=== PATIENT | male | born 1945 | race Caucasian/White ===

== ENCOUNTER → 2016-10-03 | Outpatient (CLI) | payer OTHER ==
[~2016-10-03] MED LIST: GABA-112 PO; LPT40 PO; MELO15TA4 PO; NRN100 PO
[2016-10-03 17:36] LABS: BLOOD UREA NITROGEN 18 mg/dl (7-18); CALCIUM 9.3 mg/dl (8.5-10.1); CARBON DIOXIDE 29 mmol/L (21-32); CHLORIDE 105 mmol/L (98-107); CREATININE 0.97 mg/dl (0.60-1.40); GLUCOSE 99 mg/dl (70-99); POTASSIUM 3.8 mmol/L (3.5-5.1); SODIUM 142 mmol/L (136-145)
== END | disposition home or self-care (01) ==
LOC: C.LABPVFM 15:26
PROVIDERS: ATTEND Nurse Practitioner
DX: Z11.59 Encounter for screening for other viral diseases (principal); E55.9 Vitamin D deficiency, unspecified; B02.29 Other postherpetic nervous system involvement

== ENCOUNTER 2016-11-04 14:17 | Inpatient (IN) | payer OTHER ==
[~2016-11-04] VITALS: Ht 170.2 cm; Wt 69.4 kg
[2016-11-04] VITALS: BP 175/89; PULSE 60; TEMP 36.9; O2SAT 94; BMI 23.9
[2016-11-04] MEDS ORDERED: SODIUM CHLORIDE 0.9% 1000ML 1,000 ML IV SCH ×2 (16:04→17:46)
[2016-11-04 16:29] LABS: BASO % 0.6 %; BASO ABS # 0.03 K/uL (0-0.2); COMPLETE YES; HEMATOCRIT 41.1 % (42-52); LYMPH % 31.2 %; LYMPH ABS # 1.69 K/uL (1.2-3.4); MEAN CELL VOLUME 84.4 fL (80-100); MEAN CORPUSCULAR HEMOGLOBIN 29.4 pg (25-34); MEAN CORPUSCULAR HGB CONC 34.8 g/dl (32-36); MEAN PLATELET VOLUME 9.8 fL (7.4-10.4); NEUT % 58.2 %; PLATELET COUNT 150 K/uL (130-400); RED BLOOD COUNT 4.87 M/uL (4.7-6.1); WHITE BLOOD COUNT 5.41 K/uL (4.8-10.8)
--- NOTE | 2016-11-04 16:31 | DIAGNOSTIC IMAGING REPORT ---
CHEST ONE VIEW PORTABLE CLINICAL HISTORY: Stroke COMPARISON STUDY: 03/11/2013 FINDINGS: The cardiac and mediastinal contours are normal. There is no evidence of focal pulmonary consolidation. There is no evidence of failure. No pleural effusions are visualized.[ IMPRESSION: No active disease in the chest. Electronically signed by: Seven Epstein M.D. 11/04/2016 4:30 PM Dictated Date/Time: 11/04/2016 4:29 PM
[2016-11-04 16:40] LABS: PROTHROMBIN TIME (PATIENT) 10.8 SECONDS (9.0-12.0)
--- NOTE | 2016-11-04 16:44 | DIAGNOSTIC IMAGING REPORT ---
CT HEAD WITHOUT CONTRAST (CT) CLINICAL HISTORY: Stroke COMPARISON STUDY: No previous studies for comparison. TECHNIQUE: Axial CT of the brain is performed from the vertex to the skull base. IV contrast was not administered for this examination. CT DOSE: 614.27 mGy.cm FINDINGS: No intra or extra-axial mass lesions are visualized. There is no CT evidence of acute cortical infarction. There is no evidence of midline shift. There is no acute hemorrhage. No calvarial fractures are visualized. There is a subtle hypodensity in the region of the posterior limb of the left internal capsule. A tiny lacunar infarct cannot be excluded. There is no evidence of pathologic ventricular dilatation. There is no evidence of acute sinusitis IMPRESSION: 1. No evidence of intracranial mass 2. No evidence of acute hemorrhage 3. Equivocal tiny lacunar infarct in the region of the posterior limb of the left internal capsule Electronically signed by: Seven Epstein M.D. 11/04/2016 4:43 PM Dictated Date/Time: 11/04/2016 4:42 PM
[2016-11-04 16:52] LABS: BLOOD UREA NITROGEN 22 mg/dl (7-18); BUN/CREATININE RATIO 21.9 (10-20); CARBON DIOXIDE 30 mmol/L (21-32); CHLORIDE 106 mmol/L (98-107); GLUCOSE 111 mg/dl (70-99); SODIUM 142 mmol/L (136-145)
[2016-11-04 16:56] LABS: CKMB/CK RATIO 0.9 (0-3.0)
[2016-11-04 16:57] LABS: BENZODIAZEPINE, URINE NEG (NEG); COCAINE,URINE NEG (NEG); PHENCYCLIDINE, URINE NEG (NEG)
--- NOTE | 2016-11-04 17:55 | EMERGENCY ROOM VISIT NOTE ---
History Report prepared by Isabel: Shena Henry Under the Supervision of: Dr. Demario Obregon M.D. First contact with patient: 15:50 Chief Complaint: CONFUSION Stated Complaint: CONFUSION THIS MORNING Nursing Triage Summary: Pt reports this morning when he woke up he seemed confused. He drove to his doctor but was forgettign where to turn. Pt went home and called doctor and they told him to be seen here. Pt reports this happened around 0900. Pt drove self to ER and reports he is not confused at this time. Alert and oriented x4. Denies headache, dizziness, weakness. History of Present Illness The patient is a 71 year old male who presents to the Emergency Room with complaints of an episode of confusion this morning. The patient woke up this morning around 9AM after a bad night of sleep. The patient notes that he knew where he was when he woke up and was able to perform simple tasks. He had a doctor's appointment scheduled today. He notes that through the morning, he could not figure out how to get to the doctor's office. He has not been to the doctor for about 2 months so he thinks he may have forgotten how to get there. He continued to obsess about how to get to the office and was walking around the house through the morning trying to "shake it off." He was afraid he was going to get lost, so he called the doctor's office. He said that he noticed he was occasionally having trouble finding words and explaining himself. He does not have anyone to talk to at home but thinks that he may have had similar problems yesterday. After he was talking on the phone, he seemed to settle down. He was given directions but had trouble making sense of them, so he was referred to the ER. He typically has a good sense of direction. Currently, he is feeling "foggy." Denies slurred speech, unilateral weakness, or numbness, difficulty swallowing, difficulty walking, vision problems, headaches, fevers, recent illnesses, or other complaints. He is not treated for hypertension or diabetes. He does not have a history of a stroke. He reports rare alcohol use. Source of History: patient Onset: this morning around 9AM Position: other (global) Quality: other (confusion) Timing: other (episode) Associated Symptoms: No fevers, No headache, No numbness, No weakness Note: Other symptoms: trouble finding words and communicating thoughts Review of Systems See HPI for pertinent positives & negatives. A total of 10 systems reviewed and were otherwise negative. Past Medical & Surgical Medical Problems: (1) Lyme disease Family History No pertinent family history stated. Social History Smoking Status: Never Smoker Marital Status: single Housing Status: lives alone Occupation Status: retired Allergies Coded Allergies: No Known Allergies (Unverified , 11/04/16) Physical Exam Vital Signs Date Time Temp Pulse Resp B/P Pulse Ox O2 Delivery O2 Flow Rate FiO2 11/04/16 17:16 76 16 160/86 97 Room Air 11/04/16 16:23 65 18 169/79 99 Room Air 11/04/16 16:21 99 Room Air 11/04/16 14:21 36.9 73 16 185/99 96 Room Air Physical Exam Constitutional: Vital signs reviewed. Eyes: Pupils are equal round reactive to light. Conjunctiva are noninjected. ENT: Pharynx is clear without erythema or exudate. Mucous membranes are moist. Neck supple without meningeal signs. Respiratory: Clear to auscultation bilaterally. Breath sounds are equal bilaterally. Cardiovascular: Regular rate and rhythm. No rubs or gallops. GI: Soft, nondistended and nontender. Bowel sounds are present. Musculoskeletal: No peripheral edema. No lower extremity tenderness. Integumentary: No cyanosis. Neurological: The patient is awake and alert. Cranial nerves II-XII are intact. Motor is 5 out of 5 all extremities. Sensation is intact to light touch all extremities. Normal speech. No pronator drift. Psychiatric: Normal affect. Medical Decision & Procedures ER Provider Diagnostic Interpretation: Radiology results as stated below per my review and the radiologist's interpretation: CHEST ONE VIEW PORTABLE CLINICAL HISTORY: Stroke COMPARISON STUDY: 03/11/2013 FINDINGS: The cardiac and mediastinal contours are normal. There is no evidence of focal pulmonary consolidation. There is no evidence of failure. No pleural effusions are visualized.[ IMPRESSION: No active disease in the chest. Electronically signed by: Seven Epstein M.D. 11/04/2016 4:30 PM Dictated Date/Time: 11/04/2016 4:[address] HEAD WITHOUT CONTRAST (CT) CLINICAL HISTORY: Stroke COMPARISON STUDY: No previous studies for comparison. TECHNIQUE: Axial CT of the brain is performed from the vertex to the skull base. IV contrast was not administered for this examination. CT DOSE: 614.27 mGy.cm FINDINGS: No intra or extra-axial mass lesions are visualized. There is no CT evidence of acute cortical infarction. There is no evidence of midline shift. There is no acute hemorrhage. No calvarial fractures are visualized. There is a subtle hypodensity in the region of the posterior limb of the left internal capsule. A tiny lacunar infarct cannot be excluded. There is no evidence of pathologic ventricular dilatation. There is no evidence of acute sinusitis IMPRESSION: 1. No evidence of intracranial mass 2. No evidence of acute hemorrhage 3. Equivocal tiny lacunar infarct in the region of the posterior limb of the left internal capsule Electronically signed by: Seven Epstein M.D. 11/04/2016 4:43 PM Dictated Date/Time: 11/04/2016 4:42 PM Laboratory Results 11/04/16 16:17 Red Blood Count 4.87, Mean Corpuscular Volume 84.4, Mean Corpuscular Hemoglobin 29.4, Mean Corpuscular Hemoglobin Concent 34.8, Mean Platelet Volume 9.8, Neutrophils (%) (Auto) 58.2, Lymphocytes (%) (Auto) 31.2, Monocytes (%) (Auto) 5.0, Eosinophils (%) (Auto) 5.0, Basophils (%) (Auto) 0.6, Neutrophils # (Auto) 3.15, Lymphocytes # (Auto) 1.69, Monocytes # (Auto) 0.27, Eosinophils # (Auto) 0.27, Basophils # (Auto) 0.03 11/04/16 16:17 Test 11/04/16 16:17 11/04/16 16:26 11/04/16 16:29 White Blood Count 5.41 K/uL (4.8-10.8) Red Blood Count 4.87 M/uL (4.7-6.1) Hemoglobin 14.3 g/dL (14.0-18.0) Hematocrit 41.1 % (42-52) Mean Corpuscular Volume 84.4 fL (80-100) Mean Corpuscular Hemoglobin 29.4 pg (25-34) Mean Corpuscular Hemoglobin Concent 34.8 g/dl (32-36) Platelet Count 150 K/uL (130-400) Mean Platelet Volume 9.8 fL (7.4-10.4) Neutrophils (%) (Auto) 58.2 % Lymphocytes (%) (Auto) 31.2 % Monocytes (%) (Auto) 5.0 % Eosinophils (%) (Auto) 5.0 % Basophils (%) (Auto) 0.6 % Neutrophils # (Auto) 3.15 K/uL (1.4-6.5) Lymphocytes # (Auto) 1.69 K/uL (1.2-3.4) Monocytes # (Auto) 0.27 K/uL (0.11-0.59) Eosinophils # (Auto) 0.27 K/uL (0-0.5) Basophils # (Auto) 0.03 K/uL (0-0.2) RDW Standard Deviation 37.7 fL (36.4-46.3) RDW Coefficient of Variation 12.3 % (11.5-14.5) Immature Granulocyte % (Auto) 0.0 % Immature Granulocyte # (Auto) 0.00 K/uL (0.00-0.02) Prothrombin Time 10.8 SECONDS (9.0-12.0) Prothromb Time International Ratio 1.0 (0.9-1.1) Activated Partial Thromboplast Time 25.0 SECONDS (21.0-31.0) Partial Thromboplastin Ratio 1.0 Anion Gap 6.0 mmol/L (3-11) Est Creatinine Clear Calc Drug Dose 64.3 ml/min Estimated GFR () 88.0 Estimated GFR (Non- 75.9 BUN/Creatinine Ratio 21.9 (10-20) Calcium Level 9.0 mg/dl (8.5-10.1) Total Creatine Kinase 87 U/L (39-308) Creatine Kinase MB 0.8 ng/ml (0.5-3.6) Creatine Kinase MB Ratio 0.9 (0-3.0) Troponin I < 0.015 ng/ml (0-0.045) Urine Opiates Screen NEG (NEG) Urine Methadone, Qualitative NEG (NEG) Urine Barbiturates NEG (NEG) Urine Phencyclidine (PCP) Level NEG (NEG) Ur Amphetamine/Methamphetamine NEG (NEG) MDMA (Ecstasy) Screen NEG (NEG) Urine Benzodiazepines Screen NEG (NEG) Urine Cocaine Metabolite NEG (NEG) Urine Marijuana (THC) NEG (NEG) Bedside Glucose 95 mg/dl (70-99) Bedside Prothrombin Time INR 1.0 (0.9-1.1) Laboratory results as reviewed by me. Medications Administered Medications (Trade) Dose Ordered Sig/Jose Route Start Time Stop Time Status Last Admin Dose Admin Sodium Chloride (Nss 1000ml) 1,000 ml @ 50 mls/hr Q20H IV 11/04/16 16:04 12/04/16 16:03 11/04/16 16:04 50 MLS/HR ECG Indication: other (confusion) Rate (beats per minute): 64 Rhythm: normal sinus Findings: no acute ischemic change, no ectopy ED Course 1552: The patient was evaluated in room A3. A complete history and physical exam was performed. 1604: Ordered NSS 1000 ml @ 50 mls/hr IV. 1702: I reassessed the patient. He feels like is getting less confused. I talked to him about test results. He agreed with the treatment plan. 1704: I discussed the case with Dr. Don FORD Hospitalist. The patient will be evaluated for further management. Medical Decision This is a 71-year-old male who presents with confusion. Differential diagnosis includes CVA, TIA, intracranial mass, intracranial hemorrhage, metabolic derangement, dementia. I did perform a limited focused review of portions of the patient's old chart on the electronic medical record. The patient has had no recent pertinent visits to this hospital. I did evaluate the patient as noted above. IV access was established. The patient was placed on a continuous night monitor. I did order and personally review the patient's 12-lead EKG and chest x-ray as described above. I did order and review the patient's blood work as noted in the electronic medical record. I did order a CT of the head. I did review the images myself as well as the radiology report as described above. There is some hypodensity to the left internal capsule which may represent a lacunar infarct. The patient does not have any motor or sensory symptoms. I did discuss the test results with the patient. He still feels somewhat confused but seems to be better. I did recommend hospitalization for MRI and further evaluation of his symptoms. I did discuss the case with the hospitalist and counseling case manager. Consults Time Called: 1700 Consulting Physician: Dr. Don FORD Hospitalist Returned Call: 1704 I discussed the case with him. The patient will be evaluated for further management. Impression Primary Impression: Confusion Scribe Attestation The scribe's documentation has been prepared under my direct and personally reviewed by me in its entirety. I confirm that the note above accurately reflects all work, treatment, procedures, and medical decision making performed by me. Departure Information Dispostion Being Evaluated By Hospitalist Referrals No Doctor, Assigned (PCP) Patient Instructions My [facility]
[2016-11-04] MEDS ORDERED: MELO15TA4 PO (17:58)
[2016-11-04] MEDS ORDERED: GABA-112 PO (17:58)
[2016-11-04] MEDS ORDERED: ALUMINUM/MAGNESIUM/SIMETH (MAALOX MAX) 30 ML UDC PO PRN (18:00)
[2016-11-04] MEDS ORDERED: ACETAMINOPHEN 325 MG TAB PO PRN (18:00)
[2016-11-04] MEDS ORDERED: POLYETHYLENE (MIRALAX) 17 GM PACK PO PRN (18:00)
[2016-11-04] MEDS ORDERED: PHARMACIST DISCHARGE MED REC CONSULT PRN (18:00)
[2016-11-04] MEDS ORDERED: MAGNESIUM HYDROXIDE SUSP 30 ML UDC PO PRN (18:00)
[2016-11-04] MEDS ORDERED: ONDANSETRON INJ 2 MG/ML 2 ML VIAL IV PRN (18:00)
[2016-11-04] MEDS ORDERED: NRN100 PO (18:02)
--- NOTE | 2016-11-04 18:31 | History and Physical ---
History & Physical Date & Time of Service: Nov 04, 2016 at 18:04 Chief Complaint: Confusion This Morning Primary Care Physician: Dell Nolasco M.D. History of Present Illness Source: patient, clinic records, hospital records This is a 71 y/o male with a history of post herpetic neuralgia, HLD, depression , and GERD who presented to the ED on 11/04 with confusion. The patient states that he woke up this morning feeling confused and "foggy" after a bad night's sleep. He states that he knew he had a doctor's appointment in the morning but the patient could not remember how to get to the office. The patient did not have any difficulties going about his usual daily activities and actually got into his car to drive to the office. He got lost along the way and returned home. The patient called his doctor's office, who directed him to go to the ER for evaluation. The patient was able to drive to the ER by himself without difficulty. He denied any lightheadedness, dizziness, loss of consciousness, changes in vision, weakness, numbness, or tingling. The patient states that he feels better since arrival. He denies any history of previous strokes or cardiac events. The patient denies fevers, chills, sweats, chest pain, palpitations, claudication, cough, wheezing, shortness of breath, nausea, vomiting, abdominal pain, dysuria, hematuria, urinary retention, paralysis, weakness, numbness and tingling. Past Medical/Surgical History Medical Problems: (1) Lyme disease Status: Resolved Family History Myocardial infarction FATHER Stroke MOTHER Social History Smoking Status: Former Smoker (remote history of smoking when he was young) Smokeless Tobacco Use: No Alcohol Use: occasionally (beer) Drug Use: none Marital Status: single Housing status: lives alone Occupational Status: retired Allergies Coded Allergies: No Known Allergies (Unverified , 11/04/16) Home Medications Scheduled Gabapentin (Neurontin), 200 MG PO QPM Gabapentin (Gabapentin), 100 MG PO QAM Meloxicam (Meloxicam), 15 MG PO DAILY Review of Systems Constitutional: No chills, No fatigue, No fever, No sweats, No weakness Eyes: No diplopia, No eye pain, No worsening of vision ENT: No hearing loss, No sore throat, No trouble swallowing Respiratory: No cough, No shortness of breath, No wheezing Cardiovascular: No chest pain, No claudication, No palpitations Abdomen: No nausea, No pain, No vomiting Musculoskeletal: No calf pain, No joint pain, No muscle pain Genitourinary - Male: No dysuria, No hematuria, No urinary retention Neurologic: + problem reported (confusion), No balance problems, No numbness/ tingling, No paralysis, No weakness Hematologic / Lymphatic: No abnormal bleeding/bruising, No clotting problems Integumentary: No color change, No itch, No rash Physical Exam Vital Signs Date Time Temp Pulse Resp B/P Pulse Ox O2 Delivery O2 Flow Rate FiO2 11/04/16 17:16 76 16 160/86 97 Room Air 11/04/16 16:23 65 18 169/79 99 Room Air 11/04/16 16:21 99 Room Air 11/04/16 14:21 36.9 73 16 185/99 96 Room Air General Appearance: WD/WN, no apparent distress Head: normocephalic, atraumatic Eyes: normal inspection, PERRL, EOMI ENT: normal ENT inspection, hearing grossly normal, pharynx normal Neck: supple, no JVD, trachea midline Respiratory/Chest: lungs clear, normal breath sounds, no respiratory distress Cardiovascular: regular rate, rhythm, no gallop, no murmur Abdomen/GI: normal bowel sounds, non tender, soft Extremities/Musculoskelatal: normal inspection, no calf tenderness, no pedal edema Neurologic/Psych: no motor/sensory deficits, alert, normal mood/affect, + disoriented (oriented to person and place. knew the year but not the month or day of the week), + pertinent finding (no aphasia or facial droop. pt does seem to have mild trouble finding what words he wants to say) Skin: normal color, warm/dry, no rash Diagnostics Laboratory Results Results Past 24 Hours Test 11/04/16 16:17 11/04/16 16:26 11/04/16 16:29 Range/Units White Blood Count 5.41 4.8-10.8 K/uL Red Blood Count 4.87 4.7-6.1 M/uL Hemoglobin 14.3 14.0-18.0 g/dL Hematocrit 41.1 42-52 % Mean Corpuscular Volume 84.4 80-100 fL Mean Corpuscular Hemoglobin 29.4 25-34 pg Mean Corpuscular Hemoglobin Concent 34.8 32-36 g/dl Platelet Count 150 130-400 K/uL Mean Platelet Volume 9.8 7.4-10.4 fL Neutrophils (%) (Auto) 58.2 % Lymphocytes (%) (Auto) 31.2 % Monocytes (%) (Auto) 5.0 % Eosinophils (%) (Auto) 5.0 % Basophils (%) (Auto) 0.6 % Neutrophils # (Auto) 3.15 1.4-6.5 K/uL Lymphocytes # (Auto) 1.69 1.2-3.4 K/uL Monocytes # (Auto) 0.27 0.11-0.59 K/uL Eosinophils # (Auto) 0.27 0-0.5 K/uL Basophils # (Auto) 0.03 0-0.2 K/uL RDW Standard Deviation 37.7 36.4-46.3 fL RDW Coefficient of Variation 12.3 11.5-14.5 % Immature Granulocyte % (Auto) 0.0 % Immature Granulocyte # (Auto) 0.00 0.00-0.02 K/uL Prothrombin Time 10.8 9.0-12.0 SECONDS Prothromb Time International Ratio 1.0 0.9-1.1 Activated Partial Thromboplast Time 25.0 21.0-31.0 SECONDS Partial Thromboplastin Ratio 1.0 Sodium Level 142 136-145 mmol/L Potassium Level 4.0 3.5-5.1 mmol/L Chloride Level 106 98-107 mmol/L Carbon Dioxide Level 30 21-32 mmol/L Anion Gap 6.0 3-11 mmol/L Blood Urea Nitrogen 22 7-18 mg/dl Creatinine 1.00 0.60-1.40 mg/dl Est Creatinine Clear Calc Drug Dose 64.3 ml/min Estimated GFR () 88.0 Estimated GFR (Non- 75.9 BUN/Creatinine Ratio 21.9 10-20 Random Glucose 111 70-99 mg/dl Calcium Level 9.0 8.5-10.1 mg/dl Total Creatine Kinase 87 39-308 U/L Creatine Kinase MB 0.8 0.5-3.6 ng/ml Creatine Kinase MB Ratio 0.9 0-3.0 Troponin I < 0.015 0-0.045 ng/ml Urine Opiates Screen NEG NEG Urine Methadone, Qualitative NEG NEG Urine Barbiturates NEG NEG Urine Phencyclidine (PCP) Level NEG NEG Ur Amphetamine/Methamphetamine NEG NEG MDMA (Ecstasy) Screen NEG NEG Urine Benzodiazepines Screen NEG NEG Urine Cocaine Metabolite NEG NEG Urine Marijuana (THC) NEG NEG Bedside Glucose 95 70-99 mg/dl Bedside Prothrombin Time INR 1.0 0.9-1.1 Diagnostic Radiology Reviewed the following studies and agree with interpretation as follows: Patient Name: SEDRICK MONTOYA Unit Number: [id number] Dictated: 11/04/161641 Transcribed: 11/04/161641 ARG Printed Date/Time: [~ rep prt dt]/[~ rep prt tm] [~ rep ct labl] - [~ rep ct ivnm] [facility] [address] Dictated: 11/04/161641 Transcribed: 11/04/161641 ARG Printed Date/Time: [~ rep prt dt]/[~ rep prt tm] [~ rep ct labl] - [~ rep ct ivnm] Patient: SEDRICK MONTOYA Address1: [address] [facility] Rec: [id number] Address2: Acct ID: [id number] [facility] Zip: [place] [address] Date: 1945 Sex: M Room/Bed: Ref Phy: No Doctor, Assigned SC: NIKKI Hebert Phy: Report #: [id number] Rosa Maria Phy: No Doctor, Assigned Test: HWO Admit Phy: Assembler For Puller Over Machine: VALDO Interpreting Phy: Seven Epstein M.D. Diagnosis: CONFUSION THIS MORNING Ordering Phy: Demario Obregon MD Service Date: 11/04/16 Admit Date: 11/04/16 MNE: [id number] CONF: DICTATED BY: Seven Epstein M.D.]] CC: Demario Obregon M.D. No Doctor, Assigned Endcc: [~ rep ct add3]] CT HEAD WITHOUT CONTRAST (CT) CLINICAL HISTORY: Stroke COMPARISON STUDY: No previous studies for comparison. TECHNIQUE: Axial CT of the brain is performed from the vertex to the skull base. IV contrast was not administered for this examination. CT DOSE: 614.27 mGy.cm FINDINGS: No intra or extra-axial mass lesions are visualized. There is no CT evidence of acute cortical infarction. There is no evidence of midline shift. There is no acute hemorrhage. No calvarial fractures are visualized. There is a subtle hypodensity in the region of the posterior limb of the left internal capsule. A tiny lacunar infarct cannot be excluded. There is no evidence of pathologic ventricular dilatation. There is no evidence of acute sinusitis IMPRESSION: 1. No evidence of intracranial mass 2. No evidence of acute hemorrhage 3. Equivocal tiny lacunar infarct in the region of the posterior limb of the left internal capsule Electronically signed by: Seven Epstein M.D. 11/04/2016 4:43 PM Dictated Date/Time: 11/04/2016 4:42 PM The status of this report is Signed. Draft = Not yet reviewed or approved by Radiologist. Signed = Reviewed and approved by Radiologist. <AttendingPhy></AttendingPhy> <FamilyPhy>No Doctor, Assigned</FamilyPhy> < PrimaryPhy>No Doctor, Assigned</PrimaryPhy> <UnitNumber>[id number]</UnitNumber> <VisitNumber>[id number]</VisitNumber> <PatientName>WASHINGTONSEDRICK HURLEY</ PatientName> <DateOfBirth>1945</DateOfBirth> <Location>[facility]</Location> < ServiceDate>11/04/16</ServiceDate> <MNE>ESINDI</MNE> <OrderingPhy>Demario Obregon MD</OrderingPhy> <OrderingPhyMNE>f rep ord dr hastings</OrderingPhyMNE> < DictatingPhyMNE>f rep dict dr hastings</DictatingPhyMNE> <CCListMNE>f rep ct [place]</ CCListMNE> <AdmittingPhyMNE>f pt admit dr hastings</AdmittingPhyMNE> <AttendingPhyMNE >f pt attend dr hastings</AttendingPhyMNE> <ConsultingPhyMNE>f pt consult dr hastings</ConsultingPhyMNE> <FamilyPhyMNE>f pt fam dr hastings</FamilyPhyMNE> <OtherPhyMNE>f pt other dr hastings</OtherPhyMNE> < PrimaryPhyMNE>f pt prim care dr hastings</PrimaryPhyMNE> <ReferringPhyMNE>f pt referring dr hastings</ReferringPhyMNE> Patient Name: SEDRICK MONTOYA Unit Number: [id number] Dictated: 11/04/161628 Transcribed: 11/04/161628 ARG Printed Date/Time: [~ rep prt dt]/[~ rep prt tm] [~ rep ct labl] - [~ rep ct ivnm] [facility] [place] [address] Dictated: 11/04/161628 Transcribed: 11/04/161628 ARG Printed Date/Time: [~ rep prt dt]/[~ rep prt tm] [~ rep ct labl] - [~ rep ct ivnm] Patient: SEDRICK MONTOYA Address1: [address] [facility] Rec: [id number] Address2: Acct ID: [id number] [facility] Zip: [place] [address] Date: 1945 Sex: M Room/Bed: Ref Phy: No Doctor, Assigned SC: NIKKI Att Phy: Report #: [id number] Rosa Maria Phy: No Doctor, Assigned Test: CXR1P Admit Phy: Assembler For Puller Over Machine: GENNARO Interpreting Phy: Seven Epstein M.D. Diagnosis: CONFUSION THIS MORNING Ordering Phy: Demario Obregon MD Service Date: 11/04/16 Admit Date: 11/04/16 MNE: [id number] CONF: DICTATED BY: Seven Epstein M.D.]] CC: Demario Obregon M.D. No Doctor, Assigned Endcc: [~ rep ct add3]] CHEST ONE VIEW PORTABLE CLINICAL HISTORY: Stroke COMPARISON STUDY: 03/11/2013 FINDINGS: The cardiac and mediastinal contours are normal. There is no evidence of focal pulmonary consolidation. There is no evidence of failure. No pleural effusions are visualized.[ IMPRESSION: No active disease in the chest. Electronically signed by: Seven Epstein M.D. 11/04/2016 4:30 PM Dictated Date/Time: 11/04/2016 4:29 PM The status of this report is Signed. Draft = Not yet reviewed or approved by Radiologist. Signed = Reviewed and approved by Radiologist. <AttendingPhy></AttendingPhy> <FamilyPhy>No Doctor, Assigned</FamilyPhy> < PrimaryPhy>No Doctor, Assigned</PrimaryPhy> <UnitNumber>[id number]</UnitNumber> <VisitNumber>[id number]</VisitNumber> <PatientName>SEDRICK MONTOYA</ PatientName> <DateOfBirth>1945</DateOfBirth> <Location>[facility]</Location> < ServiceDate>11/04/16</ServiceDate> <MNE>ESINDI</MNE> <OrderingPhy>Demario Obregon MD</OrderingPhy> <OrderingPhyMNE>f rep ord dr hastings</OrderingPhyMNE> < DictatingPhyMNE>f rep dict dr hastings</DictatingPhyMNE> <CCListMNE>f rep ct mne</ CCListMNE> <AdmittingPhyMNE>f pt admit dr hastinsg</AdmittingPhyMNE> <AttendingPhyMNE >f pt attend dr hastings</AttendingPhyMNE> <ConsultingPhyMNE>f pt consult dr hastings</ConsultingPhyMNE> <FamilyPhyMNE>f pt fam dr hastings</FamilyPhyMNE> <OtherPhyMNE>f pt other dr hastings</OtherPhyMNE> < PrimaryPhyMNE>f pt prim care dr hastings</PrimaryPhyMNE> <ReferringPhyMNE>f pt referring dr hastings</ReferringPhyMNE> EKG Reviewed EKG and agree with interpretation as follows: 64 bpm, NSR Impression Assessment and Plan 71 y/o male with a history of post herpetic neuralgia, HLD, depression, and GERD who presented to the ED on 11/04 with confusion. Alert and oriented x 2. Patient in normal state of health yesterday. Denies any lightheadedness, loss consciousness, changes in vision or neurological deficits. Patient hypertensive upon arrival with blood pressure 185/99, denies any history of hypertension. Head CT shows equivocal tiny lacunar infarct in posterior limb of left internal capsule, otherwise negative for acute findings. CXR negative. Initial labs grossly unremarkable. BSG 111 on arrival, repeat POC glucose 95. Possible CVA secondary to lacunar infarct--pt with AMS/confusion, no other neurological deficits -Admit to telemetry -Head CT reviewed as above -MRI of the brain without contrast -Echocardiogram -Carotid ultrasound -NSS at 50 cc/hr -Trend cardiac enzymes 3. First set negative -Check fasting lipid panel -Check hemoglobin A1c -EKGs q am and prn with chest pain -Start ASA 81 mg PO qd HLD--noted in patient's past medical history as per outpatient records. However , the patient is not taking medications for this -Will start atorvastatin 40 mg PO qd for now, check lipid panel as above Elevated blood pressure w/o h/o HTN--is no history of hypertension per outpatient records and patient denies any history of hypertension -BP 186/99 on arrival. Last recorded blood pressure 160/86 -Give hydralazine 10 mg IV 1 dose now. Can allow for permissive hypertension if MRI confirms stroke -Cover with hydralazine 10 mg IV q6h prn SBP >160 Postherpetic neuralgia w/ h/o shingles -Continue gabapentin 100 mg PO qam and 200 mg PO qpm DVT prophylaxis -LADI tam and SCDs Code Status -Level I, FULL RESUSCITATION STATUS This chart was completed in part utilizing FONU2 Speech Voice Recognition software. Attempts were made to minimize the grammatical errors, random word insertions, pronoun errors and incomplete sentences. Any formal questions or concerns about the content, text or information contained within the body of this dictation should be directly addressed to the provider for clarification. I agree with PA assessment and plan and have personally seen and examined pt myself Pt admitted for confusion with CT head revealing lacunar infarct unknown acuity BP uncontrolled Hydralazine PRN GEN: Alert and oriented x 3 Pt states feeling better now Will further rule out stroke at this time Get carotid US Obtain MRI brain combo, lipid panel and HgA1C Level of Care Telemetry Resuscitation Status FULL RESUSCITATION VTE Prophylaxis VTE Risk Assessment Done? Y/N: Yes Risk Level: Moderate Given or contraindicated: T.E.D. Stockings, SCD's
[2016-11-04] MEDS ORDERED: HydrALAZINE HCL 20 MG/ML VIAL IV. STA (18:39)
[2016-11-04] MEDS ORDERED: HydrALAZINE HCL 20 MG/ML VIAL IV. PRN (18:45)
--- NOTE | 2016-11-04 19:09 | DIAGNOSTIC IMAGING REPORT ---
BILATERAL CAROTID DOPPLER STUDY HISTORY: Stroke symptoms. COMPARISON: None. TECHNIQUE: Real-time, grayscale, and color Doppler sonography of the carotid arteries was performed. Imaging reviewed in the transverse and longitudinal planes. All measurements were calculated based on NASCET criteria. FINDINGS: Antegrade flow is seen in the bilateral vertebral arteries. The brachial pressures are hemodynamically similar. Minimal calcified plaque within the bilateral carotid bifurcations. The peak systolic velocity within the right ICA is 91 cm/s. The right systolic ratio is 0.8. The peak systolic velocity within the left ICA is 70 cm. The left systolic ratio is 0.5. IMPRESSION: No hemodynamically significant stenosis seen within the carotid arteries. Electronically signed by: Gomez Danielle M.D. 11/04/2016 7:07 PM Dictated Date/Time: 11/04/2016 7:06 PM
--- NOTE | 2016-11-04 22:15 | DIAGNOSTIC IMAGING REPORT ---
Brain MRI WITHOUT CONTRAST HISTORY: Confusion. TECHNIQUE: Multiplanar multisequence MRI of the brain was performed without the use of contrast. COMPARISON STUDY: Head CT 11/04/2016. FINDINGS: There is no mass, hematoma, midline shift, or acute infarct. Mild mucosal thickening within the paranasal sinuses. The mastoid or cells are clear. The ventricles and sulci demonstrate mild age-related involutional changes. A few scattered foci of T2 hyperintensity seen within the periventricular and subcortical white matter are nonspecific but suggestive of mild microvascular ischemic changes. The major vascular flow voids at the skull base are well-maintained. IMPRESSION: No acute intracranial abnormality. A few scattered foci of T2 hyperintensity seen within the periventricular and subcortical white matter are nonspecific but favor mild microvascular ischemic change. Electronically signed by: Gomez Danielle M.D. 11/04/2016 10:13 PM Dictated Date/Time: 11/04/2016 10:07 PM
[2016-11-05] VITALS (9 sets, daily range): BP systolic 106–175; BP diastolic 54–89; PULSE 60–78; TEMP 36.6–37.1; O2SAT 94–98; Ht 170.2 cm; Wt 69.4 kg
[2016-11-05] MEDS: GABAPENTIN 100 MG CAP PO SCH ×2 (00:06→20:13)
[2016-11-05 01:31] LABS: CKMB/CK RATIO 1.1 (0-3.0)
[2016-11-05 07:15] LABS: ESTIMATED AVERAGE GLUCOSE 105 mg/dl; HA1C FLAG Normal (Normal)
[2016-11-05 07:24] LABS: HEMATOCRIT 39.3 % (42-52); MEAN CORPUSCULAR HEMOGLOBIN 29.7 pg (25-34); MEAN CORPUSCULAR HGB CONC 35.4 g/dl (32-36); MEAN PLATELET VOLUME 10.1 fL (7.4-10.4); PLATELET COUNT 160 K/uL (130-400); RED BLOOD COUNT 4.68 M/uL (4.7-6.1); WHITE BLOOD COUNT 6.39 K/uL (4.8-10.8)
[2016-11-05 07:59] LABS: BUN/CREATININE RATIO 22.7 (10-20); CALCIUM 8.6 mg/dl (8.5-10.1); CREATININE 0.88 mg/dl (0.60-1.40)
--- NOTE | 2016-11-05 08:17 | Hospitalist Progress Note ---
Hospitalist Progress Note Date of Service Nov 05, 2016. Objective Vital Signs Date Time Temp Pulse Resp B/P Pulse Ox O2 Delivery O2 Flow Rate FiO2 11/05/16 04:04 36.7 68 20 106/64 95 Room Air 11/05/16 04:02 Room Air 11/05/16 00:00 36.9 60 20 175/89 94 Room Air 11/05/16 00:00 Room Air 11/04/16 23:04 69 18 164/87 97 Room Air 11/04/16 21:53 77 16 164/80 95 Room Air 11/04/16 20:18 69 16 159/93 99 Room Air 11/04/16 18:17 73 18 155/86 98 Room Air 11/04/16 17:16 76 16 160/86 97 Room Air 11/04/16 16:23 65 18 169/79 99 Room Air 11/04/16 16:21 99 Room Air 11/04/16 14:21 36.9 73 16 185/99 96 Room Air Laboratory Results Last 24 Hours Test 11/04/16 16:17 11/04/16 16:26 11/04/16 16:29 11/05/16 00:50 White Blood Count 5.41 K/uL Red Blood Count 4.87 M/uL Hemoglobin 14.3 g/dL Hematocrit 41.1 % Mean Corpuscular Volume 84.4 fL Mean Corpuscular Hemoglobin 29.4 pg Mean Corpuscular Hemoglobin Concent 34.8 g/dl Platelet Count 150 K/uL Mean Platelet Volume 9.8 fL Neutrophils (%) (Auto) 58.2 % Lymphocytes (%) (Auto) 31.2 % Monocytes (%) (Auto) 5.0 % Eosinophils (%) (Auto) 5.0 % Basophils (%) (Auto) 0.6 % Neutrophils # (Auto) 3.15 K/uL Lymphocytes # (Auto) 1.69 K/uL Monocytes # (Auto) 0.27 K/uL Eosinophils # (Auto) 0.27 K/uL Basophils # (Auto) 0.03 K/uL RDW Standard Deviation 37.7 fL RDW Coefficient of Variation 12.3 % Immature Granulocyte % (Auto) 0.0 % Immature Granulocyte # (Auto) 0.00 K/uL Prothrombin Time 10.8 SECONDS Prothromb Time International Ratio 1.0 Activated Partial Thromboplast Time 25.0 SECONDS Partial Thromboplastin Ratio 1.0 Sodium Level 142 mmol/L Potassium Level 4.0 mmol/L Chloride Level 106 mmol/L Carbon Dioxide Level 30 mmol/L Anion Gap 6.0 mmol/L Blood Urea Nitrogen 22 mg/dl Creatinine 1.00 mg/dl Est Creatinine Clear Calc Drug Dose 64.3 ml/min Estimated GFR () 88.0 Estimated GFR (Non- 75.9 BUN/Creatinine Ratio 21.9 Random Glucose 111 mg/dl Estimated Average Glucose 105 mg/dl Hemoglobin A1c 5.3 % Calcium Level 9.0 mg/dl Total Creatine Kinase 87 U/L 100 U/L Creatine Kinase MB 0.8 ng/ml 1.1 ng/ml Creatine Kinase MB Ratio 0.9 1.1 Troponin I < 0.015 ng/ml < 0.015 ng/ml Urine Opiates Screen NEG Urine Methadone, Qualitative NEG Urine Barbiturates NEG Urine Phencyclidine (PCP) Level NEG Ur Amphetamine/Methamphetamine NEG MDMA (Ecstasy) Screen NEG Urine Benzodiazepines Screen NEG Urine Cocaine Metabolite NEG Urine Marijuana (THC) NEG Bedside Glucose 95 mg/dl Bedside Prothrombin Time INR 1.0 Test 11/05/16 07:03 11/05/16 08:00 White Blood Count 6.39 K/uL Red Blood Count 4.68 M/uL Hemoglobin 13.9 g/dL Hematocrit 39.3 % Mean Corpuscular Volume 84.0 fL Mean Corpuscular Hemoglobin 29.7 pg Mean Corpuscular Hemoglobin Concent 35.4 g/dl RDW Standard Deviation 37.9 fL RDW Coefficient of Variation 12.5 % Platelet Count 160 K/uL Mean Platelet Volume 10.1 fL Prothrombin Time 11.0 SECONDS Prothromb Time International Ratio 1.0 Sodium Level 143 mmol/L Potassium Level 4.0 mmol/L Chloride Level 109 mmol/L Carbon Dioxide Level 28 mmol/L Anion Gap 6.0 mmol/L Blood Urea Nitrogen 20 mg/dl Creatinine 0.88 mg/dl Est Creatinine Clear Calc Drug Dose 73.0 ml/min Estimated GFR () 100.9 Estimated GFR (Non- 87.0 BUN/Creatinine Ratio 22.7 Random Glucose 93 mg/dl Calcium Level 8.6 mg/dl Triglycerides Level 59 mg/dl Cholesterol Level 210 mg/dl VLDL Cholesterol, Calculated 12 mg/dl Assessment and Plan 71 y/o M with PMHx with a HLD, depression, and GERD, history of post herpetic neuralgia, who presented to the ED on 11/04 with confusion. . Altered Mental Status - Head CT reviewed showing small lacunar infarct- question if this is older with only mild ischemic changes shown on MRI as below. - MRI IMPRESSION: No acute intracranial abnormality. A few scattered foci of T2 hyperintensity seen within the periventricular and subcortical white matter are nonspecific but favor mild microvascular ischemic change. - Carotid U/S : No hemodynamically significant stenosis seen within the carotid arteries. - 2D echo ordered - Trop neg x 2 - Check fasting lipid panel - Check hemoglobin A1c - Start ASA 81 mg PO qd - PT/OT consulted HLD - Follow lipid panel, - atorvastatin 40 mg PO qd started this admission Elevated blood pressure w/o h/o HTN - BP seems to be improved this morning after administration of IV hydralazine 10 mg last night Neuralgia -Continue gabapentin 100 mg PO qam and 200 mg PO qpm DVT ppx: TEDs, SCD CODE STATUS: Full Code Disposition:
[2016-11-05] MEDS ORDERED: ATORVASTATIN 40 MG TAB PO SCH (09:00)
[2016-11-05] MEDS ORDERED: GABAPENTIN 100 MG CAP PO SCH (09:00)
[2016-11-05] MEDS ORDERED: ASPIRIN 81 MG ECTAB PO SCH (09:00)
[2016-11-05 09:25] LABS: CKMB/CK RATIO 0.9 (0-3.0)
[2016-11-05] MEDS ORDERED: LPT40 PO (09:30)
--- NOTE | 2016-11-05 09:37 | Discharge Instructions ---
Discharge Instructions Date of Service Nov 06, 2016. Admission Reason for Admission: Altered Mental Status Discharge Discharge Diagnosis / Problem: Altered Mental Status Discharge Goals Goal(s): Decrease discomfort, Improve function, Increase independence Activity Recommendations Activity Limitations: resume your previous activity Lifting Limitations: gradually increase as tolerated Exercise/Sports Limitations: as tolerated May Resume Sexual Activity: when tolerated Shower/Bathe: no limitations Driving or Machine Use: no limitations . Instructions / Follow-Up Instructions / Follow-Up You were admitted to [facility] with altered mental status and diagnosed with TIA ( transient ischemic attack) During your stay here you were started on medications which will help reduce the risk of stroke in the future: Atorvastatin 40 mg daily. Imaging studies which were completed include Echocardiogram and carotid ultrasound were completed without acute findings. You had a CT of the head which showed a small possible stroke, but this was confirmed to be NEGATIVE by MRI of the brain/head. Continue taking all medications as prescribed. Follow up with your Primary Care Provider within 1 week. Current Hospital Diet Patient's current hospital diet: AHA Diet (Heart Healthy) Discharge Diet Recommended Diet: AHA Diet (Heart Healthy) Procedures Procedures Performed: Echocardiogram MRI brain/head CT head Carotid ultrasound Pending Studies Studies pending at discharge: no Laboratory Results Hemoglobin A1c Test 11/04/16 16:17 Range/Units Estimated Average Glucose 105 mg/dl Hemoglobin A1c 5.3 4.5-5.6 % Lipid Panel Test 11/05/16 07:03 Range/Units Triglycerides Level 59 0-150 mg/dl Cholesterol Level 210 H 0-200 mg/dl HDL Cholesterol 69 mg/dl Cholesterol/HDL Ratio 3.0 LDL Cholesterol, Calculated 129 mg/dl Medical Emergencies . Who to Call and When: Medical Emergencies: If at any time you feel your situation is an emergency, please call 911 immediately. . Non-Emergent Contact Non-Emergency issues call your: Primary Care Provider Call Non-Emergent contact if: you have a fever, your pain is concerning you, wound has increased pain, you have any medication questions Call 911 or go to the Emergency department if you develope increased confusion, lightheadedness, dizziness, chest pain, shortness of breath, abdominal pain, nausea, vomiting, diarrhea, constipation, or if you have other concerns regarding your health. . Past History Medical & Surgical History: (1) Confusion (2) Altered mental status . "Provider Documentation" section prepared by Lauren Gutierrez. VTE Core Measure Inpt VTE Proph given/why not?: Hunter Martinez, [facility]
--- NOTE | 2016-11-05 10:28 | Discharge Summary ---
Discharge Summary Date of Service Nov 05, 2016. Discharge Summary Admission Date: Nov 04, 2016 at 18:03 Discharge Date: Nov 05, 2016 Discharge Disposition: Home Principal Diagnosis: Altered mental status, TIA Problems/Secondary Diagnoses: Hyperlipidemia, GERD, depression, neuropathy Procedures: CT HEAD WITHOUT CONTRAST 11/04/16 IMPRESSION: 1. No evidence of intracranial mass 2. No evidence of acute hemorrhage 3. Equivocal tiny lacunar infarct in the region of the posterior limb of the left internal capsule CXR 11/04/16 IMPRESSION: No active disease in the chest. BILATERAL CAROTID DOPPLER STUDY 11/04/16 IMPRESSION: No hemodynamically significant stenosis seen within the carotid arteries. BRAIN MRI WITHOUT CONTRAST 11/04/16 IMPRESSION: No acute intracranial abnormality. A few scattered foci of T2 hyperintensity seen within the periventricular and subcortical white matter are nonspecific but favor mild microvascular ischemic change. Consultations: None Discharge Exam The patient was not seen this morning due to elopement. The patient was last seen dressed in his street clothes by nursing personel this morning at 8 am. The police were called and found the patient at his home. He refused to answer the door for a while but then stated he was scared being in the hospital, and refused to return. I and Dr. Hanks attempted to call the patient's brother, Pete @ found from his PCP's office, it is incorrect in his chart here. There was no answer and we were unable to leave a voicemail. Hospital Course H&P per Barb Reid PA-C Source: patient, clinic records, hospital records This is a 71 y/o male with a history of post herpetic neuralgia, HLD, depression , and GERD who presented to the ED on 11/04 with confusion. The patient states that he woke up this morning feeling confused and "foggy" after a bad night's sleep. He states that he knew he had a doctor's appointment in the morning but the patient could not remember how to get to the office. The patient did not have any difficulties going about his usual daily activities and actually got into his car to drive to the office. He got lost along the way and returned home. The patient called his doctor's office, who directed him to go to the ER for evaluation. The patient was able to drive to the ER by himself without difficulty. He denied any lightheadedness, dizziness, loss of consciousness, changes in vision, weakness, numbness, or tingling. The patient states that he feels better since arrival. He denies any history of previous strokes or cardiac events. The patient denies fevers, chills, sweats, chest pain, palpitations, claudication, cough, wheezing, shortness of breath, nausea, vomiting, abdominal pain, dysuria, hematuria, urinary retention, paralysis, weakness, numbness and tingling. Physical Exam Vital Signs Date Time Temp Pulse Resp B/P Pulse Ox O2 Delivery O2 Flow Rate FiO2 11/04/16 17:16 76 16 160/86 97 Room Air 11/04/16 16:23 65 18 169/79 99 Room Air 11/04/16 16:21 99 Room Air 11/04/16 14:21 36.9 73 16 185/99 96 Room Air General Appearance: WD/WN, no apparent distress Head: normocephalic, atraumatic Eyes: normal inspection, PERRL, EOMI ENT: normal ENT inspection, hearing grossly normal, pharynx normal Neck: supple, no JVD, trachea midline Respiratory/Chest: lungs clear, normal breath sounds, no respiratory distress Cardiovascular: regular rate, rhythm, no gallop, no murmur Abdomen/GI: normal bowel sounds, non tender, soft Extremities/Musculoskelatal: normal inspection, no calf tenderness, no pedal edema Neurologic/Psych: no motor/sensory deficits, alert, normal mood/affect, + disoriented (oriented to person and place. knew the year but not the month or day of the week), + pertinent finding (no aphasia or facial droop. pt does seem to have mild trouble finding what words he wants to say) Skin: normal color, warm/dry, no rash 71 y/o M with PMHx with a HLD, depression, and GERD, history of post herpetic neuralgia, who presented to the ED on 11/04 with confusion. . Hospital Course: The patient was admitted for altered mental status secondary to likely TIA. Although this workup was found to be negative for acute stroke, he displayed severe signs of dementia with scoring a 17/30 on the mini mental exam yesterday. The patient has waxing and waning confusion, and we were unable to get in touch with the patient family members on multiple occasions. The patient eloped from the hospital sometime between 4:00 am and 8:00am when medical team went to see him. The patient was found by police at his home this morning where he was asked to come back to the hospital, but refused. He is not a danger to others or himself. Office of aging has been asked to follow up with the patient claire. The patient did not receive discharge instructions. Prescription for atorvastatin 40 mg daily was sent to his pharmacy yesterday. Altered Mental Status secondary to TIA with component of dementia - Head CT reviewed showing small lacunar infarct- question if this is older with only mild ischemic changes shown on MRI as below. - MRI IMPRESSION: No acute intracranial abnormality. A few scattered foci of T2 hyperintensity seen within the periventricular and subcortical white matter are nonspecific but favor mild microvascular ischemic change. - Carotid U/S : No hemodynamically significant stenosis seen within the carotid arteries. - 2D echo ordered: - Trop neg x 2 - Lipid panel is slightly elevated with total cholesterol =210, explanation of findings was discussed with the patient. Pt was placed on atorvastatin 40 mg daily, continue at time of discharge. - Check hemoglobin A1c - Start ASA 81 mg PO qd - PT/OT consulted - from home, lives alone, ambulates without assistance at baseline Dementia - scored 17/30 on MME - Office of aging to contact the pt s/p elopement. HLD - Lipids slightly elevated, total dnni=489, LDL= 129, HDL=69 - atorvastatin 40 mg PO qd started this admission, continue Elevated blood pressure w/o h/o HTN - BP seems to be improved this morning after administration of IV hydralazine 10 mg last night Neuralgia -Continue gabapentin 100 mg PO qam and 200 mg PO qpm DVT ppx: TEDs, SCD CODE STATUS: Full Code Disposition: Pt eloped from hospital this morning. Total Time Spent: Greater than 30 minutes This includes examination of the patient, discharge planning, medication reconciliation, and communication with other providers. Discharge Instructions Please refer to the electronic Patient Visit Report (Discharge Instructions) for additional information. Follow-Up Follow up with your Primary Care Provider within 1 week. Additional Copies To Dell Nolasco M.D.
[2016-11-05 10:51] LABS: MANUAL MICROSCOPIC REQUIRED? NO; URINE APPEARANCE CLEAR (CLEAR); URINE BILIRUBIN NEG (NEG); URINE COLOR YELLOW; URINE NITRITE NEG (NEG); URINE PH 7.5 (4.5-7.5); UROBILINOGEN NEG (NEG)
[2016-11-05 11:04] LABS: REVIEW REQ? NO
[2016-11-05 11:32] LABS: ZZUR CULT IF INDIC CLEAN CATCH NO
--- NOTE | 2016-11-05 12:12 | Hospitalist Progress Note ---
Hospitalist Progress Note Date of Service Nov 05, 2016. Subjective Pt evaluation today including: conversation w/ patient, physical exam, chart review, lab review, review of studies, review of inpatient medication list Pain: None PO Intake: Good Voiding: no voiding problems The patient was seen and examined this morning. Pt reports doing well, is oriented x 3 and alert. He answers questions without difficulty. He does have trouble remembering the events of yesterday at first, but is able to describe chronological events eventually. Pt reports he is not familiar with [facility] so was confused about the directions to get to the clinic, so he drove himself home and called the office, and was instructed to go to the hospital, so he drove himself here. He denies feeling confused this morning, denies weakness, changes in vision, or any other focal complaints. Additional Comments: Review of Systems: Constitutional: No chills, No fatigue, No fever Eyes: No diplopia, No redness ENT: No sore throat, No tinnitus Respiratory: No cough, No shortness of breath, No sputum Cardiovascular: No chest pain, No palpitations Abdomen: No constipation, No diarrhea, No nausea, No pain, No vomiting Musculoskeletal: No calf pain, No swelling Genitourinary - Male: No dysuria, No hematuria Neurologic: No balance problems, No memory loss, No paralysis, No vertigo, No weakness Psychiatric: + depression symptoms Endocrine: No excessive thirst, No excessive urination, No fatigue Integumentary: No itch, No rash Objective Vital Signs Date Time Temp Pulse Resp B/P Pulse Ox O2 Delivery O2 Flow Rate FiO2 11/05/16 07:45 36.9 78 20 121/54 95 Room Air 11/05/16 04:04 36.7 68 20 106/64 95 Room Air 11/05/16 04:02 Room Air 11/05/16 00:00 36.9 60 20 175/89 94 Room Air 11/05/16 00:00 Room Air 11/04/16 23:04 69 18 164/87 97 Room Air 11/04/16 21:53 77 16 164/80 95 Room Air 11/04/16 20:18 69 16 159/93 99 Room Air 11/04/16 18:17 73 18 155/86 98 Room Air 11/04/16 17:16 76 16 160/86 97 Room Air 11/04/16 16:23 65 18 169/79 99 Room Air 11/04/16 16:21 99 Room Air 11/04/16 14:21 36.9 73 16 185/99 96 Room Air Physical Exam Notes: Physical Exam: General Appearance: WD/WN, no apparent distress Eyes: PERRL, EOMI ENT: hearing grossly normal, pharynx normal Neck: no adenopathy, no JVD Respiratory/Chest: chest non-tender, lungs clear, normal breath sounds, no accessory muscle use Cardiovascular: regular rate, rhythm, no murmur, normal peripheral pulses Abdomen / GI: normal bowel sounds, non tender, soft, no organomegaly Extremities: normal inspection, no calf tenderness, no pedal edema Neurologic/Psychiatric: 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, no motor/sensory deficits , alert, normal mood/affect, oriented x 3 Skin: normal color, warm/dry Laboratory Results Last 24 Hours Test 11/04/16 16:17 11/04/16 16:26 11/04/16 16:29 11/05/16 00:00 White Blood Count 5.41 K/uL Red Blood Count 4.87 M/uL Hemoglobin 14.3 g/dL Hematocrit 41.1 % Mean Corpuscular Volume 84.4 fL Mean Corpuscular Hemoglobin 29.4 pg Mean Corpuscular Hemoglobin Concent 34.8 g/dl Platelet Count 150 K/uL Mean Platelet Volume 9.8 fL Neutrophils (%) (Auto) 58.2 % Lymphocytes (%) (Auto) 31.2 % Monocytes (%) (Auto) 5.0 % Eosinophils (%) (Auto) 5.0 % Basophils (%) (Auto) 0.6 % Neutrophils # (Auto) 3.15 K/uL Lymphocytes # (Auto) 1.69 K/uL Monocytes # (Auto) 0.27 K/uL Eosinophils # (Auto) 0.27 K/uL Basophils # (Auto) 0.03 K/uL RDW Standard Deviation 37.7 fL RDW Coefficient of Variation 12.3 % Immature Granulocyte % (Auto) 0.0 % Immature Granulocyte # (Auto) 0.00 K/uL Prothrombin Time 10.8 SECONDS Prothromb Time International Ratio 1.0 Activated Partial Thromboplast Time 25.0 SECONDS Partial Thromboplastin Ratio 1.0 Sodium Level 142 mmol/L Potassium Level 4.0 mmol/L Chloride Level 106 mmol/L Carbon Dioxide Level 30 mmol/L Anion Gap 6.0 mmol/L Blood Urea Nitrogen 22 mg/dl Creatinine 1.00 mg/dl Est Creatinine Clear Calc Drug Dose 64.3 ml/min Estimated GFR () 88.0 Estimated GFR (Non- 75.9 BUN/Creatinine Ratio 21.9 Random Glucose 111 mg/dl Estimated Average Glucose 105 mg/dl Hemoglobin A1c 5.3 % Calcium Level 9.0 mg/dl Total Creatine Kinase 87 U/L Creatine Kinase MB 0.8 ng/ml Creatine Kinase MB Ratio 0.9 Troponin I < 0.015 ng/ml Urine Opiates Screen NEG Urine Methadone, Qualitative NEG Urine Barbiturates NEG Urine Phencyclidine (PCP) Level NEG Ur Amphetamine/Methamphetamine NEG MDMA (Ecstasy) Screen NEG Urine Benzodiazepines Screen NEG Urine Cocaine Metabolite NEG Urine Marijuana (THC) NEG Bedside Glucose 95 mg/dl Bedside Prothrombin Time INR 1.0 Urine Color YELLOW Urine Appearance CLEAR Urine pH 7.5 Urine Specific Errol 1.010 Urine Protein NEG Urine Glucose (UA) NEG Urine Ketones 1+ Urine Occult Blood NEG Urine Nitrite NEG Urine Bilirubin NEG Urine Urobilinogen NEG Urine Leukocyte Esterase NEG Test 11/05/16 00:50 11/05/16 07:03 11/05/16 08:23 Total Creatine Kinase 100 U/L 97 U/L Creatine Kinase MB 1.1 ng/ml 0.9 ng/ml Creatine Kinase MB Ratio 1.1 0.9 Troponin I < 0.015 ng/ml < 0.015 ng/ml White Blood Count 6.39 K/uL Red Blood Count 4.68 M/uL Hemoglobin 13.9 g/dL Hematocrit 39.3 % Mean Corpuscular Volume 84.0 fL Mean Corpuscular Hemoglobin 29.7 pg Mean Corpuscular Hemoglobin Concent 35.4 g/dl RDW Standard Deviation 37.9 fL RDW Coefficient of Variation 12.5 % Platelet Count 160 K/uL Mean Platelet Volume 10.1 fL Prothrombin Time 11.0 SECONDS Prothromb Time International Ratio 1.0 Sodium Level 143 mmol/L Potassium Level 4.0 mmol/L Chloride Level 109 mmol/L Carbon Dioxide Level 28 mmol/L Anion Gap 6.0 mmol/L Blood Urea Nitrogen 20 mg/dl Creatinine 0.88 mg/dl Est Creatinine Clear Calc Drug Dose 73.0 ml/min Estimated GFR () 100.9 Estimated GFR (Non- 87.0 BUN/Creatinine Ratio 22.7 Random Glucose 93 mg/dl Calcium Level 8.6 mg/dl Triglycerides Level 59 mg/dl Cholesterol Level 210 mg/dl HDL Cholesterol 69 mg/dl LDL Cholesterol, Calculated 129 mg/dl VLDL Cholesterol, Calculated 12 mg/dl Cholesterol/HDL Ratio 3.0 Assessment and Plan 71 yo M with PMHx of hyperlipidemia GERd and neuralgia in the RLE who presented to the ED yesterday with altered mental status. Altered Mental Status secondary to TIA - Unlikely a stroke at this time with the findings as listed below. The patient was AAOx3 for me early this morning. Later this morning nursing staff reports that the patient was not oriented to date place or time. It's possible that this pt may have some form of early onset dementia with the waxing and waning picture of orientation, and difficulty with recall of events. The patient also lives at home by himself, and family members live in different parts of the state, so do not see him on a regular base. It is questionable what his baseline mental status is. I have asked neurology to see the patient today. - Neuro consulted - Head CT reviewed showing small lacunar infarct- question if this is older with only mild ischemic changes shown on MRI as below. - MRI IMPRESSION: No acute intracranial abnormality. A few scattered foci of T2 hyperintensity seen within the periventricular and subcortical white matter are nonspecific but favor mild microvascular ischemic change. - Carotid U/S : No hemodynamically significant stenosis seen within the carotid arteries. - 2D echo ordered: await results - Trop neg x 2 - Lipid panel is slightly elevated with total cholesterol =210, explanation of findings was discussed with the patient. Pt was placed on atorvastatin 40 mg daily, continue at time of discharge. - Check hemoglobin A1c - Cont ASA 81 mg PO qd - PT/OT consulted - from home, lives alone, ambulates without assistance at baseline HLD - Lipids slightly elevated, total yisw=740, LDL= 129, HDL=69 - atorvastatin 40 mg PO qd started this admission, continue Elevated blood pressure w/o h/o HTN - BP seems to be improved this morning after administration of IV hydralazine 10 mg last night Neuralgia - RLE: Continue gabapentin 100 mg PO qam and 200 mg PO qpm DVT ppx: TEDs, SCD CODE STATUS: Full Code Disposition: From home, await neuro eval, discharge within 1 day.
[2016-11-05 17:47] LABS: LYME DISEASE AB IGG NEG (NEG); LYME DISEASE AB IGM NEG (NEG)
[2016-11-05 23:20] LABS: RAPID PLASMA REAGIN NONREACTIVE (NONREACT)
[2016-11-06 00:01] VITALS: BP 162/80; PULSE 76; TEMP 36.9; O2SAT 97
[2016-11-06 07:10] VITALS: BP 158/84; PULSE 79; TEMP 36.4; O2SAT 93
[2016-11-06] MEDS ORDERED: CHOLECALCIFEROL 1000 INTER.UNIT TAB PO SCH (09:00)
[2016-11-06 10:02] VITALS: BP 95/61; PULSE 71
--- NOTE | 2016-11-06 11:00 | Neurology Consultation ---
Neurology Consultation Date of Consultation: Nov 06, 2016. Attending Physician: Michael Hanks D.O. Primary Care Physician: Dell Nolasco M.D. Reason for Consultation: Confusion, suspected dementia The consultation cannot be completed on this patient as he was not present in his room on several attempts at assessing him this morning. His nurse indicated that it was reported that he put on his street clothes and may have left the hospital on his own. He states that house staff and security were notified. Past Medical/Surgical History Medical Problems: (1) Confusion Status: Acute Social History Smokeless Tobacco Use: No Alcohol Use: occasionally (beer) Drug Use: none Marital Status: single Housing Status: lives alone Occupation Status: retired Allergies Coded Allergies: No Known Allergies (Unverified , 11/04/16) Current Inpatient Medications Current Inpatient Medications Medications (Trade) Dose Ordered Sig/Jose Route Start Time Stop Time Status Last Admin Dose Admin Atorvastatin Calcium (Lipitor Tab) 40 mg QAM PO 11/05/16 09:00 12/05/16 08:59 11/05/16 08:45 40 MG Aspirin (Ecotrin Tab) 81 mg QAM PO 11/05/16 09:00 12/05/16 08:59 11/05/16 08:45 81 MG Miscellaneous Information (Pharmacist Discharge Med Rec Consult) 1 ea UD PRN N/A 11/04/16 18:00 12/04/16 17:59 Acetaminophen (Tylenol Tab) 650 mg Q4H PRN PO 11/04/16 18:00 12/04/16 17:59 Al Hydrox/Mg Hydrox/Simethicone (Maalox Max Susp) 15 ml Q4H PRN PO 11/04/16 18:00 12/04/16 17:59 Magnesium Hydroxide (Milk Of Magnesia Susp) 30 ml Q12H PRN PO 11/04/16 18:00 12/04/16 17:59 Ondansetron HCl (Zofran Inj) 4 mg Q6H PRN IV 11/04/16 18:00 12/04/16 17:59 Polyethylene (Miralax Powder Packet) 17 gm DAILY PRN PO 11/04/16 18:00 12/04/16 17:59 Gabapentin (Neurontin Cap) 100 mg QAM PO 11/05/16 09:00 12/05/16 08:59 11/05/16 08:45 100 MG Gabapentin (Neurontin Cap) 200 mg QPM PO 11/04/16 21:00 12/04/16 20:59 11/05/16 20:13 200 MG Hydralazine HCl (HydrALAZINE INJ) 10 mg Q6H PRN IV. 11/04/16 18:45 12/04/16 18:44 11/04/16 23:44 10 MG Cholecalciferol (Vitamin D Tab) 1,000 inter.unit QAM PO 11/06/16 09:00 12/06/16 08:59 Physical Exam Vital Signs (Past 24 Hrs): Date Time Temp Pulse Resp B/P Pulse Ox O2 Delivery O2 Flow Rate FiO2 11/06/16 10:02 71 95/61 11/06/16 07:10 36.4 79 18 158/84 93 Room Air 11/06/16 00:05 Room Air 11/06/16 00:01 36.9 76 18 162/80 97 Room Air 11/05/16 20:05 Room Air 11/05/16 18:18 36.6 67 20 97 11/05/16 16:00 97 Room Air 11/05/16 15:50 36.6 67 20 144/78 97 Room Air 11/05/16 12:00 98 Room Air 11/05/16 11:40 37.1 68 20 124/72 98 Room Air Laboratory Results Past 24 Hours: Test 11/05/16 14:24 25-Hydroxy Vitamin D Total 33.2 ng/ml (30-100) Thyroid Stimulating Hormone (TSH) 0.945 uIu/ml (0.300-4.500) Rapid Plasma Reagin NONREACTIVE (NONREACT) Lyme Disease IgG Antibody NEG (NEG) Lyme Disease IgM Antibody NEG (NEG)
--- NOTE | 2016-11-21 07:38 | EDITING REQUIRED CODING QUERY ---
SUPPORTING DIAGNOSIS NEEDED A supporting diagnosis is required for the test/procedure performed on this patient in order for us to be reimbursed by the patient's insurance. Please provide a supporting diagnosis for the following test/procedure listed below next to the test name along with your signature. *If there is no additional diagnosis for this patient that would support the following test/procedure please document that below next to the test/procedure. Test(s)/Procedure(s) that require a supporting diagnosis: * RAPID PLASMA REAGIN DIAGNOSIS: cognitive impairment, suspected dementia * DOS: 11/05/16 Provider Signature: Date: Thank you Josee Guzman Health Information Management For questions please call [phone]
== END 2016-11-06 11:18 | disposition left against medical advice (07) | DRG 69 ==
LOC: ENRESERVTM → ENRESERVDT → C.EDB 14:18 → C.2T 18:03 → C.MS2W 11-05 18:49
PROVIDERS: ADMIT Hospitalist; ATTEND Internal Medicine
DX: G45.9 Transient cerebral ischemic attack, unspecified (principal); B02.29 Other postherpetic nervous system involvement; F01.50 Vascular dementia, unspecified severity, without behavioral disturbance, psychotic disturbance, mood disturbance, and anxiety; E78.5 Hyperlipidemia, unspecified; R03.0 Elevated blood-pressure reading, without diagnosis of hypertension; Z79.1 Long term (current) use of non-steroidal anti-inflammatories (NSAID); Z79.899 Other long term (current) drug therapy; Z82.49 Family history of ischemic heart disease and other diseases of the circulatory system; Z82.3 Family history of stroke

== ENCOUNTER → 2017-08-18 | Day surgery (SDC) | payer OTHER ==
[2017-07-16 12:42] VITALS: Ht 166.4 cm; Wt 63.6 kg
[~2017-08-18] VITALS: Ht 166.4 cm; Wt 63.6 kg
[~2017-08-18] MED LIST changes: +500ML BSS 0.3ML EPI 1:1000PF IRRIG ONE; +ACETAMINOPHEN 325 MG TAB PO PRN; +AMVISC PLUS 0.8ML SYRINGE INT OCU ONE; +ATROPINE SULFATE 0.1 MG/ML 5ML SYR IV PRN; +BSS FLUSH ONE; +EpHEDrine SULFATE INJ 50 MG/ML AMP IV PRN; +EpINEphrine INJ 1MG/ML AMP 1 MG/ML AMP ONE; +LACTATED RINGER'S 1000ML 500 ML IV SCH; +LIDOCAINE 3.5% OPH GEL PER APPLICATION CHARGE ONE; +LIDOCAINE HCL 1% MPF 2 ML VIAL ONE; +LISI10TA PO; -LPT40 PO; -MELO15TA4 PO; +MIDAZOLAM HCL 1 MG/ML 2ML VIAL ONE; -NRN100 PO; +OCUCOAT 1 ML SOLN IO ONE; +POVIDONE-IODINE OP SOLN 30 ML BTL ONE; +PROPARACAINE 0.5% OP SOLN PER DROP CHARGE OPR SCH; +RANI150T85 PO; +TOBRAMYCIN/DEXAMETHASONE OPH OINT PER APPLN CHARGE ONE
[2017-08-18] MEDS: PHENYLEPHRINE HCL 2.5% OP SOLN PER DROP CHARGE OPR SCH ×2 (08:04→08:09)
[2017-08-18] MEDS: TROPICAMIDE 1% OP SOLN PER DROP CHARGE OPR SCH ×2 (08:05→08:10)
[2017-08-18] MEDS: CYCLOPENTOLATE HCL 1% OP SOLN PER DROP CHARGE OPR SCH ×2 (08:06→08:11)
[2017-08-18] MEDS: KETOROLAC 0.5% OP SOLN PER DROP CHARGE OPR SCH ×2 (08:07→08:12)
[2017-08-18] MEDS: GATIFLOXACIN OP SOLN PER DROP CHARGE OPR SCH ×2 (08:08→08:13)
--- NOTE | 2017-08-18 08:56 | History & Physical Bridge - SC ---
H&P Re-Evaluation Bridge Note: I have examined the patient, reviewed the History & Physical and in the interval since the performance of the History & Physical I have noted the following changes of clinical significance: Diagnosis: Right Cataract Procedure: Right Cataract Removal with Lens Implant No changes noted
--- NOTE | 2017-08-18 09:29 | Discharge Instructions-SurgCtr ---
Discharge Instructions Date of Service Aug 18, 2017. Visit Reason for Visit: Cataract Right Eye Discharge Discharge Diagnosis / Problem: cataract Discharge Goals Goal(s): Improve function Activity Recommendations Activity Limitations: per Instructions/Follow-up section Anesthesia . Post Anesthesia Instructions: If you have had General Anesthesia or IV Sedation: * Do not drive today. * Resume driving when surgeon permits. * Do not make important decisions or sign legal documents today. * Call surgeon for: 1. Temperature elevations greater than 101 degrees F. 2. Uncontrollable pain. 3. Excessive bleeding. 4. Persistent nausea and vomiting. 5. Medication intolerance (nausea, vomiting or rash). * For nausea and vomiting use only clear liquids such as: tea, soda, bouillon until nausea subsides, then gradually increase diet as tolerated. * If you have any concerns or questions, call your surgeon's office. If physician is unavailable and it is an emergency, call 911 or go to the nearest emergency room. . Diet Recommendations Home Diet: resume previous diet Procedures Procedures Performed: Right Cataract Phacoemulsification With Intraocular Lens Implant Pending Studies Studies pending at discharge: no Medical Emergencies . Who to Call and When: Medical Emergencies: If at any time you feel your situation is an emergency, please call 911 immediately. . Non-Emergent Contact Non-Emergency issues call your: Prosthetics Lab Technician . . "Provider Documentation" section prepared by Jonathan Hernandez. .
--- NOTE | 2017-08-18 09:30 | [facility] Operative Report ---
Operative Report Date of Service Aug 18, 2017. Operative Report 1. PREOPERATIVE DIAGNOSIS: Cataract of the right eye. 2. POSTOPERATIVE DIAGNOSIS: Same. 3. PROCEDURE: Phacoemulsification with intraocular lens implantation of the right eye. SURGEON: Dr. Jonathan Hernandez. ANESTHESIA: Topical Lidocaine gel, 1% Non- Preserved intracameral Lidocaine, and monitored intravenous sedation. INDICATIONS FOR THE PROCEDURE: The patient is a 72 - year-old male with a history of cataract of the right eye causing significant visual impairment. The details of the proposed procedure were explained to the patient who asked appropriate questions and following discussion of all risks, benefits and alternatives agreed to have the procedure done. 4. OPERATION AND FINDINGS: DESCRIPTION OF PROCEDURE: After informed consent was obtained, the patient was brought to the Operating Room at the [facility]. The patient was placed in a supine position and then the right eye was prepped and draped in the usual sterile fashion for intraocular surgery. A drop of topical Lidocaine gel was placed in the operative eye. A wire lid speculum was then placed in the fornices. A corneal paracentesis was then created temporally. The Non-Preserved Lidocaine was then instilled into the anterior chamber. The anterior chamber was then pressurized with viscoelastic. A 2.0 mm clear corneal incision was then created temporally. A cystotome was inserted into the anterior chamber and used to create a tear in the anterior lens capsule. This capsular tear was then used to create a small flap and the flap was dragged in a counterclockwise direction in order to create a continuous curvilinear capsulorrhexis. Hydrodissection was accomplished with balanced salt solution. Phacoemulsification of the lens nucleus was then performed in a standard [id number] technique. The phaco time was 21 seconds with an average power of 10 %. The remaining cortical material was removed using irrigation aspiration. The capsular bag was then filled with viscoelastic. A [employer] MI60L +17.0 diopters lens was then loaded into the injector and injected into the capsular bag. The remaining viscoelastic was removed with the irrigation aspiration handpiece. The wound was hydrated and then checked and found to be watertight. The intraocular pressure was checked and found to be adequate. The wire lid speculum was removed and the patient's face was cleaned and dried. TobraDex ointment was placed in the inferior fornix. The patient was discharged to the Recovery Room having tolerated the procedure well. There were no complications. The patient will be seen tomorrow in the office for follow-up. I attest to the content of the Intraoperative Record and any orders documented therein. Any exceptions are noted below.
[2017-08-18 09:58] VITALS: BP 117/63; PULSE 59; O2SAT 100
--- NOTE | 2017-08-18 10:09 | Anesthesiology Progress Note ---
Anesthesia Post Op Note Date & Time Aug 18, 2017 at 10:09 Vital Signs Pain Intensity: 0 Vital Signs Past 12 Hours Date Time Temp Pulse Resp B/P (MAP) Pulse Ox O2 Delivery O2 Flow Rate FiO2 08/18/17 09:58 59 18 117/63 (81) 100 Room Air 08/18/17 09:30 36.4 60 16 122/74 (90) 100 Room Air 08/18/17 07:54 36.6 67 16 128/73 (91) 99 Room Air Notes Mental Status: alert / awake / arousable, participated in evaluation Nausea / Vomiting: adequately controlled Pain: adequately controlled Airway Patency, RR, SpO2: stable & adequate BP & HR: stable & adequate Hydration State: stable & adequate Anesthetic Complications: no major complications apparent
== END | disposition home or self-care (01) ==
LOC: X.SURG 07:09
PROVIDERS: ATTEND Ophthalmology
DX: H26.9 Unspecified cataract (principal); F03.90 Unspecified dementia, unspecified severity, without behavioral disturbance, psychotic disturbance, mood disturbance, and anxiety; R41.0 Disorientation, unspecified; K21.0 Gastro-esophageal reflux disease with esophagitis; I10 Essential (primary) hypertension; Z86.73 Personal history of transient ischemic attack (TIA), and cerebral infarction without residual deficits; Z86.19 Personal history of other infectious and parasitic diseases

== ENCOUNTER → 2017-09-08 | Day surgery (SDC) | payer OTHER ==
[2017-08-24 14:20] VITALS: Ht 166.4 cm; Wt 63.6 kg
[~2017-09-08] VITALS: Ht 166.4 cm; Wt 63.6 kg
[~2017-09-08] MED LIST changes: -GABA-112 PO; +ONDANSETRON INJ 2 MG/ML 2 ML VIAL IV PRN; +PROPARACAINE 0.5% OP SOLN PER DROP CHARGE OPL SCH; -PROPARACAINE 0.5% OP SOLN PER DROP CHARGE OPR SCH; -RANI150T85 PO
[2017-09-08] MEDS: PHENYLEPHRINE HCL 2.5% OP SOLN PER DROP CHARGE OPL SCH ×2 (06:39→06:43)
[2017-09-08] MEDS: TROPICAMIDE 1% OP SOLN PER DROP CHARGE OPL SCH ×2 (06:39→06:44)
[2017-09-08] MEDS: CYCLOPENTOLATE HCL 1% OP SOLN PER DROP CHARGE OPL SCH ×2 (06:40→06:45)
[2017-09-08] MEDS: KETOROLAC 0.5% OP SOLN PER DROP CHARGE OPL SCH ×2 (06:41→06:45)
[2017-09-08] MEDS: GATIFLOXACIN OP SOLN PER DROP CHARGE OPL SCH ×2 (06:41→06:52)
--- NOTE | 2017-09-08 06:55 | History & Physical Bridge - [place] ---
H&P Re-Evaluation Bridge Note: I have examined the patient, reviewed the History & Physical and in the interval since the performance of the History & Physical I have noted the following changes of clinical significance: Diagnosis: Left Cataract Procedure: Left Cataract Removal with Lens Implant No changes noted
--- NOTE | 2017-09-08 07:46 | [facility] Operative Report ---
Operative Report Date of Service Sep 08, 2017. Operative Report 1. PREOPERATIVE DIAGNOSIS: Cataract of the left eye. 2. POSTOPERATIVE DIAGNOSIS: Same. 3. PROCEDURE: Phacoemulsification with intraocular lens implantation of the left eye. SURGEON: Dr. Jonathan Hernandez. ANESTHESIA: Topical Lidocaine gel, 1% Non- Preserved intracameral Lidocaine, and monitored intravenous sedation. INDICATIONS FOR THE PROCEDURE: The patient is a 72 - year-old male with a history of cataract of the left eye causing significant visual impairment. The details of the proposed procedure were explained to the patient who asked appropriate questions and following discussion of all risks, benefits and alternatives agreed to have the procedure done. 4. OPERATION AND FINDINGS: DESCRIPTION OF PROCEDURE: After informed consent was obtained, the patient was brought to the Operating Room at the [facility]. The patient was placed in a supine position and then the left eye was prepped and draped in the usual sterile fashion for intraocular surgery. A drop of topical Lidocaine gel was placed in the operative eye. A wire lid speculum was then placed in the fornices. A corneal paracentesis was then created temporally. The Non-Preserved Lidocaine was then instilled into the anterior chamber. The anterior chamber was then pressurized with viscoelastic. A 2.0 mm clear corneal incision was then created temporally. A cystotome was inserted into the anterior chamber and used to create a tear in the anterior lens capsule. This capsular tear was then used to create a small flap and the flap was dragged in a counterclockwise direction in order to create a continuous curvilinear capsulorrhexis. Hydrodissection was accomplished with balanced salt solution. Phacoemulsification of the lens nucleus was then performed in a standard [id number] technique. The phaco time was 16 seconds with an average power of 9 %. The remaining cortical material was removed using irrigation aspiration. The capsular bag was then filled with viscoelastic. A [employer] MI60L +16.0 diopters lens was then loaded into the injector and injected into the capsular bag. The remaining viscoelastic was removed with the irrigation aspiration handpiece. The wound was hydrated and then checked and found to be watertight. The intraocular pressure was checked and found to be adequate. The wire lid speculum was removed and the patient's face was cleaned and dried. TobraDex ointment was placed in the inferior fornix. The patient was discharged to the Recovery Room having tolerated the procedure well. There were no complications. The patient will be seen tomorrow in the office for follow-up. I attest to the content of the Intraoperative Record and any orders documented therein. Any exceptions are noted below.
--- NOTE | 2017-09-08 07:47 | Discharge Instructions-SurgCtr ---
Discharge Instructions Date of Service Sep 08, 2017. Visit Reason for Visit: Cataract Left Eye Discharge Discharge Diagnosis / Problem: cataract Discharge Goals Goal(s): Improve function Activity Recommendations Activity Limitations: per Instructions/Follow-up section Anesthesia . Post Anesthesia Instructions: If you have had General Anesthesia or IV Sedation: * Do not drive today. * Resume driving when surgeon permits. * Do not make important decisions or sign legal documents today. * Call surgeon for: 1. Temperature elevations greater than 101 degrees F. 2. Uncontrollable pain. 3. Excessive bleeding. 4. Persistent nausea and vomiting. 5. Medication intolerance (nausea, vomiting or rash). * For nausea and vomiting use only clear liquids such as: tea, soda, bouillon until nausea subsides, then gradually increase diet as tolerated. * If you have any concerns or questions, call your surgeon's office. If physician is unavailable and it is an emergency, call 911 or go to the nearest emergency room. . Diet Recommendations Home Diet: resume previous diet Procedures Procedures Performed: Left Cataract Phacoemulsification With Intraocular Lens Implant Pending Studies Studies pending at discharge: no Medical Emergencies . Who to Call and When: Medical Emergencies: If at any time you feel your situation is an emergency, please call 911 immediately. . Non-Emergent Contact Non-Emergency issues call your: Business Leader . . "Provider Documentation" section prepared by Jonathan Hernandez. .
[2017-09-08 07:53] VITALS: BP 114/63; PULSE 54; TEMP 36.7; O2SAT 100
--- NOTE | 2017-09-08 08:01 | Anesthesia Progress Nt - [facility] ---
Anesthesia Post Op Note Date & Time Sep 08, 2017 at 08:01 Vital Signs Pain Intensity: 0 Vital Signs Past 12 Hours Date Time Temp Pulse Resp B/P (MAP) Pulse Ox O2 Delivery O2 Flow Rate FiO2 09/08/17 07:53 36.7 54 16 114/63 (80) 100 Room Air 09/08/17 06:29 36.5 62 16 119/73 (88) 98 Room Air Notes Mental Status: alert / awake / arousable, participated in evaluation Pt Amnestic to Procedure: Yes Nausea / Vomiting: adequately controlled Pain: adequately controlled Airway Patency, RR, SpO2: stable & adequate BP & HR: stable & adequate Hydration State: stable & adequate Anesthetic Complications: no major complications apparent
== END | disposition home or self-care (01) ==
LOC: X.SURG 06:16
PROVIDERS: ATTEND Ophthalmology
DX: H26.9 Unspecified cataract (principal); I10 Essential (primary) hypertension; K21.9 Gastro-esophageal reflux disease without esophagitis; F03.90 Unspecified dementia, unspecified severity, without behavioral disturbance, psychotic disturbance, mood disturbance, and anxiety; Z82.0 Family history of epilepsy and other diseases of the nervous system